=== PATIENT | male | born 1945 | race Caucasian/White ===

== ENCOUNTER → 2024-01-04 00:26 | Emergency (ER) | payer MEDICARE, OTHER, SELFPAY ==
[2024-01-04 00:24] VITALS: PULSE 0; RESP 14; O2SAT 98
--- NOTE | 2024-01-04 01:02 | ED.GENADULT ---
HPI - General Adult General Chief complaint: Cardiac Arrest/CPR Stated complaint: CARDIAC ARREST History of Present Illness HPI narrative: 78-year-old male brought in by EMS for cardiac arrest. Per family he trying to use the restroom when he fell into the bathtub was too weak to get out. He then started vomiting and went unresponsive. Family called EMS. When EMS arrived the patient was still in baths 7 breathing actually. Extrication was delayed due to location. CPR was initiated and ACLS protocols were followed. Patient was initially in PA after that was in asystole throughout the code. Patient was then brought to the hospital with CPR in progress. Related Data Allergies Allergy/AdvReac Type Severity Reaction Status Date / Time No Known Allergies Allergy Mild Unverified 09/01/05 07:00 Exam Narrative: APPEARANCE: nonresponsive Head: atraumatic. EYES: fixed dilated NOSE: Atraumatic NECK: Trachea midline RESPIRATORY: no respiratory rate CARDIOVASCULAR: no pulse ABDOMINAL: soft nondistended multiple surgical scars MUSCULOSKELETAl: bilateral BKA is NEURO: nonresponsive SKIN:: pale, cold PSYCHIATRIC: nonresponsive Course Vital Signs Vital signs: Vital Signs Pulse Rate 0 L 01/04/24 00:24 Respiratory Rate 14 01/04/24 00:24 Pulse Oximetry 98 01/04/24 00:24 Oxygen Delivery Mechanical Ventilation 01/04/24 00:24 Pulse Rate 0 L 01/04/24 00:24 Respiratory Rate 14 01/04/24 00:24 Pulse Oximetry 98 01/04/24 00:24 Oxygen Delivery Mechanical Ventilation 01/04/24 00:24 Medical Decision Making MDM Narrative Medical decision making narrative: -Course: 78-year-old male brought hospice care with CPR in progress. CPR been performed for over 20 minutes. ACLS protocols followed. Asystole on arrival. Patient time of called at 12:25 a.m. Dispo: Vital Signs Vital Signs: Vital Signs Pulse Rate 0 L 01/04/24 00:24 Respiratory Rate 14 01/04/24 00:24 Pulse Oximetry 98 01/04/24 00:24 Oxygen Delivery Mechanical Ventilation 01/04/24 00:24 Pulse Rate 0 L 01/04/24 00:24 Respiratory Rate 14 01/04/24 00:24 Pulse Oximetry 98 01/04/24 00:24 Oxygen Delivery Mechanical Ventilation 01/04/24 00:24 Discharge Plan Discharge Clinical Impression: Cardiac arrest Patient Disposition: Home, Self-Care Condition: Instructions: Antibiotic Form Follow-up/Referrals: Lit,MD Marya [Primary Care Provider] -
== END | disposition expired ==
PROVIDERS: Emergency Provider Emergency Medicine; PCP Physical Medicine & Rehabilitation
DX: I46.9 Cardiac arrest, cause unspecified (principal)
CPT/HCPCS: 92950; 99285